=== PATIENT | female | born 1995 | race Caucasian/White ===

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

== ENCOUNTER 2017-03-17 13:29 | Emergency (ER) | payer OTHER ==
[2017-03-17 14:13] VITALS: RESP 16; TEMP 98.2
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
[2017-03-17 17:14] VITALS: BP 126/71; PULSE 76; O2SAT 94
== END 2017-03-17 17:12 | disposition home or self-care (01) ==
DX: S06.0X0A Concussion without loss of consciousness, initial encounter (principal); V18.0XXA Pedal cycle driver injured in noncollision transport accident in nontraffic accident, initial encounter; Y92.410 Unspecified street and highway as the place of occurrence of the external cause; Y99.8 Other external cause status; Y93.55 Activity, bike riding

== ENCOUNTER 2018-11-19 11:59 | Emergency (ER) | payer BC, OTHER ==
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
[2018-11-19] MEDS ORDERED: IBUPROFEN 200 MG TAB PO ONE (12:38)
[2018-11-19 13:36] VITALS: BP 106/66
== END 2018-11-19 13:37 | disposition home or self-care (01) ==
DX: F07.81 Postconcussional syndrome (principal); W01.198D Fall on same level from slipping, tripping and stumbling with subsequent striking against other object, subsequent encounter